=== PATIENT | female | born 1980 | race Two or more races ===

== ENCOUNTER 2022-07-09 15:09 | Emergency (ER) | payer OTHER ==
[~2022-07-09] VITALS: Ht 162.6 cm; Wt 114.8 kg
[2022-07-09 15:58] VITALS: BP 162/90
[2022-07-09 17:01] LABS: APPEARANCE,URINE CLEAR (CLEAR); BILIRUBIN,URINE NEGATIVE (NEGATIVE); BLOOD, URINE TRACE-I (NEGATIVE); COLOR,URINE YELLOW (YELLOW); LEUKOCYTE ESTERASE ,URINE NEGATIVE (NEGATIVE); NITRITE, URINE NEGATIVE (NEGATIVE); UGLUCOSE NEGATIVE (NEGATIVE)
[2022-07-09 17:18] LABS: BASOPHILS # (AUTO) 0.1 K/uL (0.00-0.22); EOSINOPHILS # (AUTO) 0.4 K/uL (0-0.4); HEMATOCRIT 38.4 % (36-48); HEMOGLOBIN 12.9 g/dL (12.0-16.0); LYMPHOCYTES # (AUTO) 2.8 K/uL (2.5-16.5); LYMPHOCYTES % (AUTO) 27.8 % (20.5-51.1); MEAN CORPUSCULAR HEMOGLOBIN 27 pg (27-31); MEAN CORPUSCULAR HGB CONC 34 g/dL (33-37); MEAN CORPUSCULAR VOLUME 81.2 fL (80-94); MONOCYTES # (AUTO) 0.8 K/uL (0.8-1.0); NEUTROPHILS % (AUTO) 59.2 % (42.2-75.2); PLATELET COUNT (AUTO) 244 K/uL (140-450); RED BLOOD CELL COUNT(AUTO) 4.74 MIL/uL (4.20-5.40); RED CELL DISTRIBUTION WIDTH 15.5 % (11.6-13.7); WHITE BLOOD COUNT (AUTO) 10.1 K/uL (4.8-10.8)
[2022-07-09 17:32] LABS: ALBUMIN 3.6 g/dL (3.4-5.0); CARBON DIOXIDE 26.5 mmol/L (21-32); CREATININE 0.7 mg/dL (0.6-1.3); POTASSIUM 3.5 mmol/L (3.5-5.1); TOTAL BILIRUBIN 0.4 mg/dL (0.0-1.0)
[2022-07-09 17:47] LABS: RBC,URINE 0-5 /HPF (0-5)
--- NOTE | 2022-07-09 18:03 | NUR ---
PT WALKED TO ROOM, RADIOLOGY AT BEDSIDE
--- NOTE | 2022-07-09 18:40 | NUR ---
TO ER BED 5
--- NOTE | 2022-07-09 18:55 | NUR ---
41YO F PRESENTS W/LLQ AND LT HIP PAIN X 2MTHS, FEVER X 5 DAYS, TYLENOL W/O RELIEF, LOSS OF APPETITE, INTERMITTENT NAUSEA. DENIES V,D,C, URINARY SYMPTOMS. SAFETY MAINTAINED. HX: HYPERTHYROIDISM NKA
--- NOTE | 2022-07-09 19:21 | NUR ---
The patient's care was reviewed and supervised by [facility], RN.
[2022-07-09] MEDS ORDERED: IBUP-2218 PO (19:39)
[2022-07-09] MEDS ORDERED: CYCL-711 PO (19:39)
--- NOTE | 2022-07-09 19:44 | NUR ---
Patient discharged with v/s stable. Written and verbal after care instructions given and explained. Patient alert, oriented and verbalized understanding of instructions. Ambulatory with steady gait. All questions addressed prior to discharge. ID band removed. Patient advised to follow up with PMD. Rx of FLEXERIL AND IBUPROFEN given. Opportunity to ask questions provided and answered.
--- NOTE | 2022-07-09 20:32 | NUR ---
The patient's care was reviewed and supervised by Tamela Berrios RN.
== END 2022-07-09 19:44 | disposition home or self-care (01) ==
LOC: MED 15:09
DX: S39.012A Strain of muscle, fascia and tendon of lower back, initial encounter (principal); E03.9 Hypothyroidism, unspecified; Z79.899 Other long term (current) drug therapy; Z90.49 Acquired absence of other specified parts of digestive tract; X58.XXXA Exposure to other specified factors, initial encounter; Y93.89 Activity, other specified; Y92.89 Other specified places as the place of occurrence of the external cause; Y99.8 Other external cause status
CPT/HCPCS: 36415; 80053; 81001; 81025; 83690; 85025; 99284